=== PATIENT | female | born 2005 | race Caucasian/White ===

== ENCOUNTER 2023-02-26 18:14 | Emergency (ER) | payer BC ==
[~2023-02-26] VITALS: Ht 165.1 cm; Wt 56.8 kg
[2023-02-26 18:22] VITALS: TEMP 98.4
[2023-02-26 18:33] LABS: COLLECTION METHOD CLEAN CATCH
[2023-02-26 18:51] LABS: BASO % 0.4 % (0.0-2.0); EOS # 0.1 K/mm3 (0.0-0.7); EOS % 0.4 % (0.0-4.0); GRAN # 9.1 K/mm3 (1.4-6.5); GRAN % 80.4 % (42.2-75.2); HEMATOCRIT 39.3 % (35.0-45.0); HEMOGLOBIN 13.8 g/dl (12.0-15.0); LYMPH # 1.2 K/mm3 (1.2-3.4); LYMPH % 10.7 % (20.0-51.0); MEAN CELL VOLUME 89 fl (80.0-95.0); MEAN CORPUSCULAR HEMOGLOBIN 31 pg (26-32); MEAN CORPUSCULAR HGB CONC 35 g/dl (33.0-37.0); MEAN PLATELET VOLUME 10.6 fl (7.4-10.4); MONO # 0.9 K/mm3 (0.1-0.6); MONO % 7.7 % (1.7-9.3); PLATELET COUNT 180 K/mm3 (130-400); RED BLOOD COUNT 4.41 M/mm3 (4.10-5.30); REDCELL DISTRIBUTION WIDTH-CV 11.2 % (11.5-14.5)
[2023-02-26 19:00] LABS: URINE APPEARANCE Turbid (CLEAR/HAZY); URINE COLOR Yellow (YELLOW)
[2023-02-26 19:01] LABS: PH 5.5 (5.0-8.5); SQUAMOUS EPITHELIAL 0-2 /hpf (0-10); URINE BACTERIA Moderate /hpf (NONE SEEN); URINE BLOOD 3+ (NEGATIVE); URINE GLUCOSE Negative (NEGATIVE); URINE KETONE Negative (NEGATIVE); URINE NITRATE Negative (NEGATIVE); URINE PROTEIN(semi-quant) 3+ (NEGATIVE); URINE RBC 20-50 /hpf (0-2); URINE UROBILINOGEN 0.2 E.U/dL (0.2-1.0)
[2023-02-26 19:08] LABS: ALBUMIN 4.2 gm/dL (3.5-5.0); BILIRUBIN,TOTAL 0.6 mg/dL (0.2-1.2); CALCIUM 9.1 mg/dL (8.4-10.2); CREATININE, serum 0.82 mg/dL (0.57-1.11); POTASSIUM 3.7 mmol/L (3.5-4.5); TOTAL PROTEIN 7.2 gm/dL (6.2-8.1)
[2023-02-26] MEDS ORDERED: CEPHALEXIN500 M1 PO (19:38)
[2023-02-26 19:47] VITALS: BP 101/57; PULSE 72
== END 2023-02-26 19:46 | disposition home or self-care (01) ==
LOC: COL.ER 18:14
PROVIDERS: Physician Assistant
DX: N12 Tubulo-interstitial nephritis, not specified as acute or chronic (principal)
CPT/HCPCS: J0696; J7040